=== PATIENT | female | born 1995 | race Caucasian/White ===

== ENCOUNTER 2022-07-13 11:34 | Emergency (ER) | payer OTHER ==
[~2022-07-13] VITALS: Ht 162.6 cm; Wt 86.2 kg
[2022-07-13 11:59] VITALS: BP 128/77
[2022-07-13] MEDS ORDERED: ALBUTEROL SULFATE/IPRATROPIU 3 ML SOL IH ONE ×2 (12:10→13:05)
--- NOTE | 2022-07-13 12:35 | NUR ---
27 y/o female, c/o sob, increased cough attacks, subjective fever, chills, body aches for 4 days. pt states she was seen at urgent care 2 days ago and given steriods im, inhaler and breathing tx with minimal relief. a&ox4, ambulates with steady gait. lungs wheezing bl with wet cough, non productive. pmh: asthma nka
--- NOTE | 2022-07-13 12:39 | NUR ---
pt given albuterol tx at this time, pt 98% ra with cough and crackles prior to tx
--- NOTE | 2022-07-13 13:29 | NUR ---
pt given another albuterol tx 100% ra
[2022-07-13] MEDS ORDERED: BPM/178S PO (14:08)
[2022-07-13 14:21] VITALS: BP 128/77
--- NOTE | 2022-07-13 14:22 | NUR ---
Patient discharged with v/s stable. Written and verbal after care instructions given and explained. Patient alert, oriented and verbalized understanding of instructions. Ambulatory with steady gait. All questions addressed prior to discharge. ID band removed. Patient advised to follow up with PMD. Rx of guaifenesin (sent) given. Patient educated on indication of medication including possible reaction and side effects. Opportunity to ask questions provided and answered. copy of labs given with work note
== END 2022-07-13 14:22 | disposition home or self-care (01) ==
LOC: MED 11:34
DX: B34.9 Viral infection, unspecified (principal); Z20.822 Contact with and (suspected) exposure to COVID-19; J45.901 Unspecified asthma with (acute) exacerbation; Z79.899 Other long term (current) drug therapy
CPT/HCPCS: 71045; 87426; 87804; 94640; 99284; Q0092

== ENCOUNTER 2023-04-15 00:23 | Emergency (ER) | payer OTHER ==
[~2023-04-15] VITALS: Ht 160 cm; Wt 104.3 kg
[~2023-04-15 00:23] MED LIST: BPM/178S PO
[2023-04-15 00:44] VITALS: BP 146/80; PULSE 107; RESP 24; TEMP 98; O2SAT 100
[2023-04-15 01:07] LABS: FLU A ANTIGEN negative (NEGATIVE); FLU B ANTIGEN negative (NEGATIVE)
[2023-04-15 05:10] VITALS: O2SAT 100
[2023-04-15] MEDS ORDERED: ACETAMIN/CODEINE 120/12MG-5ML 5 ML UDC PO ONE (05:15)
[2023-04-15] MEDS ORDERED: ALBUTEROL SULFATE/IPRATROPIU 3 ML SOL IH ONE (05:15)
[2023-04-15 05:19] VITALS: PULSE 98; RESP 18; O2SAT 99
[2023-04-15] MEDS ORDERED: ALBU0.0912 IH (05:59)
[2023-04-15] MEDS ORDERED: ROBAC PO (06:11)
[2023-04-15 06:25] VITALS: BP 132/78; PULSE 82; RESP 16; TEMP 98; O2SAT 98
== END 2023-04-15 06:25 | disposition home or self-care (01) ==
LOC: MED 00:23
DX: J45.901 Unspecified asthma with (acute) exacerbation (principal); Z79.899 Other long term (current) drug therapy; Z20.822 Contact with and (suspected) exposure to COVID-19
CPT/HCPCS: 94640; 99283